=== PATIENT | male | born 1990 | race Caucasian/White ===

== ENCOUNTER 2021-02-04 18:15 | Emergency (ER) | payer OTHER ==
[~2021-02-04] VITALS: Ht 185.4 cm; Wt 90.7 kg
[2021-02-04 18:34] VITALS: BP 134/81
[2021-02-04] MEDS ORDERED: ALBU18HF2 INH (18:52)
== END 2021-02-04 19:02 | disposition home or self-care (01) ==
LOC: ER 18:19
DX: J45.909 Unspecified asthma, uncomplicated (principal); Z76.0 Encounter for issue of repeat prescription; Z79.899 Other long term (current) drug therapy